=== PATIENT | female | born 2000 | race Caucasian/White ===

== ENCOUNTER 2019-10-07 00:30 | Emergency (ER) | payer OTHER, SELFPAY ==
[2019-10-07 00:35] VITALS: BP 131/81; PULSE 74; RESP 18; TEMP 35.9; O2SAT 99
--- NOTE | 2019-10-07 01:08 | ED_ITS ---
HPI - Skin/Abscess/Foreign Bdy General Chief complaint: Skin/Abscess/Foreign Body Stated complaint: Wound under right breast Source: patient Mode of arrival: ambulatory Limitations: no limitations History of Present Illness HPI narrative: 19 y.o. s/p breast reduction surgery June 2019 without post-op complications. About 3 hours ago she had a small area open up along the suture line and drain yellow, watery fluid which has now stopped. She has had not pain or tenderness in this area. Pt. wondering if steri-strips should be applied. Related Data Home Medications Medication Instructions Recorded Confirmed fluoxetine 20 mg PO DAILY 10/07/19 10/07/19 Allergies Allergy/AdvReac Type Severity Reaction Status Date / Time No Known Allergies Allergy Verified 10/07/19 01:08 Review of Systems Constitutional: Constitutional: Denies chills and Denies fever(s) [facility] Past Medical History Medical History (Updated 10/07/19 @ 01:16 by Germain Fisher MD) Anxiety Depression Surgical History Surgical History (Updated 10/07/19 @ 01:15 by Germain Fisher MD) H/O bilateral breast reduction surgery Exam Narrative: Exam Narrative: Vitals are normal. Const: General: cooperative and no acute distress Chest: Other: Right breast examined in the presence of Roxann Green. Chest/axillae images: 1. 2mm opening along vertical incision line. Base of wound is fatty tissue. Wound edges without redness, tenderness or induration. Course Course Emergency Course: wound cleansed, steri-strips applied. Vital Signs Vital signs: Vital Signs Temperature 35.9 C L 10/07/19 00:35 Pulse Rate 74 10/07/19 00:35 Respiratory Rate 18 10/07/19 00:35 Blood Pressure 131/81 10/07/19 00:35 Pulse Oximetry 99 10/07/19 00:35 Temperature 35.9 C L 10/07/19 00:35 Pulse Rate 74 10/07/19 00:35 Respiratory Rate 18 10/07/19 00:35 Blood Pressure 131/81 10/07/19 00:35 Pulse Oximetry 99 10/07/19 00:35 MDM - Skin/Abscess/Foreign Bdy MDM Narrative Medical decision making narrative: Appears to have had a build up of serum under a suture line which then dehisced. No evidence of infection. Discharge Plan Discharge Clinical Impression: Dehiscence of closure of skin Qualifiers: Encounter type: initial encounter Qualified Code(s): T81.31XA - Disruption of external operation (surgical) wound, not elsewhere classified, initial encounter Patient Disposition: Home, Self-Care Condition: Stable Instructions: Wound Dehiscence (ED) Additional Instructions: Contact your surgeon on Tuesday, 10/07 regarding wound care and continued use of steristrips. Remove steristrips if pain, redness or tenderness develop. Prescriptions: No Action fluoxetine 20 mg Tablet 20 mg PO DAILY RF: 0 Follow-up/Referrals: UNKNOWN,DOCTOR [Primary Care Provider] - Time of Disposition: 01:10 Discharge Date/Time: 10/07/19 01:13
[2019-10-07 01:12] VITALS: BP 128/70; PULSE 82; RESP 20; TEMP 36.2; O2SAT 99
== END 2019-10-07 01:13 | disposition home or self-care (01) ==
PROVIDERS: Emergency Provider Family Medicine
DX: T81.31XA Disruption of external operation (surgical) wound, not elsewhere classified, initial encounter (principal)
CPT/HCPCS: 99281; 99283